=== PATIENT | male | born 1955 | race Caucasian/White ===

== ENCOUNTER 2016-08-07 11:01 | Emergency (ER) | payer MEDICAID, OTHER ==
[2016-08-07] MEDS ORDERED: ORPHENADRINE 60 MG/2 ML AMP ONE (11:49)
[2016-08-07] MEDS ORDERED: KETOROLAC 60 MG/2 ML VIAL IM ONE (11:49)
== END 2016-08-07 15:42 | disposition home or self-care (01) ==
LOC: FASTR 11:01
CPT/HCPCS: 72100; 96372